=== PATIENT | female | born 1995 | race Two or more races ===

== ENCOUNTER 2025-04-28 17:23 | Observation (INO) | payer MEDICAID, SELFPAY ==
[2025-04-28] VITALS (7 sets, daily range): BP systolic 124; BP diastolic 66; PULSE 87–95; RESP 14–98; TEMP 36.8; O2SAT 97–99; BMI 33.5
== END 2025-04-28 18:20 | disposition home or self-care (01) ==
PROVIDERS: Admitting Provider Specialist; Referring Provider Specialist; Visit Provider Specialist
DX: O26.853 Spotting complicating pregnancy, third trimester (principal); Z3A.37 37 weeks gestation of pregnancy
CPT/HCPCS: 59025; 59899

== ENCOUNTER 2025-05-16 08:13 | Inpatient (IN) | payer MEDICAID, SELFPAY ==
[2025-05-16] VITALS (221 sets, daily range): BP systolic 81–145; BP diastolic 50–83; PULSE 55–142; RESP 18–98; TEMP 36.6–38; O2SAT 63–100; BMI 33.7; BMI 33.8
--- NOTE | 2025-05-16 09:18 | PD.LDHP ---
Documentation for date of: 05/16/25 OB Labor/Induct. HPI History of Present Illness : 3 Para: 2 Term pregnancies: 3 pregnancies: 0 Living children: 3 History of Abortions: Spontaneous and Elective: 0 History of sections: No History of : No EMMETT: 05/15/25 Gestational Age (weeks): 40 Gestational Age (days): 1 History of present illness: 29-year-old 3 para 2-0-0-3 intrauterine at 40 weeks and 1 day presents to labor and delivery complaining of contractions and is noted to be in active labor. Denies any leaking or bleeding. Reports normal movement. care complicated by iron deficiency anemia Comments: OB history: 1 previous full-term normal vaginal delivery at 40 weeks and 1 previous twin delivery normal vaginal delivery at 38 weeks Past medical history: Iron deficiency anemia, B12 deficiency , rubella nonimmune Allergies: No known drug allergies Family history: Denies Social history: Denies any alcohol drug use or smoking Review of Systems Review of Systems Narrative Review of Systems: Denies any chest pain palpitations cough fever shortness of breath or lower extremity pain. She denies any headache change vision or right upper quadrant pain. Past Medical History Surgical History SURGICAL: Negative Section Meds Home Medications and Allergies Home Medications ?Medication ?Instructions ?Recorded ?Confirmed ?Type vits no.124-ferrous fum 1 tab PO QDAY 05/09/20 04/28/25 History 27 mg iron-folic acid 800 mcg tablet ( Vitamin) cyanocobalamin (vitamin B-12) 1,000 mcg PO QDAY 04/28/25 04/28/25 History 1,000 mcg tablet ferrous sulfate 325 mg (65 mg 325 mg PO QDAY 04/28/25 04/28/25 History iron) tablet Allergies Allergy/AdvReac Type Severity Reaction Status Date / Time No Known Allergies Allergy Verified 04/28/25 17:45 OB Exam Physical Exam Vital signs: Pulse BP 82 124/77 05/16/25 08:37 05/16/25 08:37 Constitutional Comments: Within normal limits Routine HEENT Exam Comments: Within normal limits Routine Respiratory Exam Comments: Clear to auscultation bilaterally Routine Cardiovascular Exam Comments: Regular rate and rhythm Routine Abdominal Exam Comments: Gravid term size consistent with 7 and half pounds. Detailed Labor and Delivery Exam Comments: See RN notes. Routine Extremities Exam Comments: Nontender Routine Skin Exam Comments: No gross rashes or lesions Routine Neurological Exam Comments: No deficits OB Results Impressions Impression: Intrauterine at 40w1d Early labor Anticipate spontaneous vaginal delivery Informed consent was obtained. The patient made aware of the risk of operative vaginal delivery and delivery and agrees with these modes of delivery if indicated.
[2025-05-16 09:44] LABS: Basophils # (Auto) 0.0 Thou/mm3 (0.0-0.2); Basophils % (Auto) 0 % (0-2.5); Eosinophils # (Auto) 0.0 Thou/mm3 (0.0-0.5); Eosinophils % (Auto) 1 % (0-10); Hematocrit 33.2 % (36.0-46.0); Hemoglobin 11.2 g/dL (12.0-16.0); Immature Granulocytes Auto 0.02 Thou/mm3 (0.00-0.00); Lymphocytes # (Auto) 1.9 Thou/mm3 (1.0-4.8); Lymphocytes % (Auto) 26 % (10-50); Mean Corpuscular HGB Conc 33.7 g/dl (31.0-37.0); Mean Corpuscular Hemoglobin 28.0 pg (25.0-35.0); Mean Corpuscular Volume 83 fL (80-100); Monocytes # (Auto) 0.5 Thou/mm3 (0.0-0.8); Monocytes % (Auto) 6 % (0-12); Neutrophils # (Auto) 5.1 Thou/mm3 (1.8-7.7); Neutrophils % (Auto) 67 % (37-80); Nucleated Red Blood Cell # 0.00 Thou/mm3 (0.00-0.00); Nucleated Red Blood Cell % 0 /100 WBC (0); Platelet Count 257 Thou/mm3 (140-440); RDW Standard Deviation 43.0 fL (36.4-46.3); Red Blood Count 4.00 Miln/mm3 (4.00-5.20); White Blood Count 7.6 Thou/mm3 (3.6-11.0)
[2025-05-16 10:14] LABS: Syphilis Nonreactive (Nonreactive)
[2025-05-16] MEDS: RINGERS LACTATED 1000 ML 1,000 ML 100 ML IV ×3 (11:00→18:08)
[2025-05-16 12:46] LABS: Amphetamine/Metham Scrn,Ur OB Negative (Negative); Benzoylecgonine Screen, Ur OB Negative (Negative); Opiate Screen,Urine OB Negative (Negative); THC Screen,Urine OB Negative (Negative)
--- NOTE | 2025-05-16 19:28 | PD.LDPN ---
Documentation for date of: 05/16/25 OB Labor Progress Note Pain Control Comments: Epidural Pelvic Exam Dilation (cm): 10 Effacement (%): 100 station: +1 Amniotic membrane status: Ruptured Comments: Forebag ruptured. Clear fluid. Contractions Monitor mode: External Contraction frequency: 1-3.5 Contraction pattern: Tetanic Contraction intensity: Strong Status status: Category l CNM Management Details of MD consultation: Amp and Gent for intrapartum fever consistent with chorioamninitis Encourage pushing Anticipate .
[2025-05-16] MEDS: Ampicillin Inj 2,000 MG in SODIUM CHLORIDE 0.9% (POP) 100 ML 100 MG IV (19:46)
[2025-05-16] MEDS: MINERAL OIL 30 ML UDC TOP (20:56)
[2025-05-16] MEDS: OXYTOCIN in NS 20 units 20 UNIT/1,000 ML BAG 125 UNIT IV (20:59)
--- NOTE | 2025-05-16 21:13 | PD.LDDS ---
DS: Providers Provider Date of admission: 05/16/25 08:49 Primary care physician: Physician No Primary/Family Admitting Provider: Tevin Mcnally MD Attending Provider on Admission: Tevin Mcnally MD Attending Provider on DC: Tevin Mcnally MD Discharging Provider: Tevin Mcnally MD DS: Diagnosis Problem List Completed Was Problem List Reviewed/Reconciled?: Yes Summary/Hosp Course Brief History: 29-year-old 3 para 2-0-0-3 intrauterine at 40 weeks and 1 day presents to labor and delivery complaining of contractions and is noted to be in active labor. Denies any leaking or bleeding. Reports normal movement. care complicated by iron deficiency anemia Time Spent with Patient Time attestation: Total time spent providing and/or coordinating discharge services: Exam Vital Signs Temp Pulse Resp BP Pulse Ox O2 Del Method 100.4 F 104 H 18 107/57 L 99 Room Air 05/16/25 19:15 05/16/25 20:49 05/16/25 19:15 05/16/25 20:49 05/16/25 21:09 05/16/25 19:15 Discharge Plan Plan Patient Disposition: HOME (Self Care) Patient condition on transfer: Stable Prescriptions/Referrals Prescriptions/Med Rec: New ibuprofen 600 mg tablet 600 mg PO QID PRN (Reason: pain) Qty: 30 0RF Continued Vitamin 27 mg iron- 800 mcg Tablet 1 tab PO QDAY cyanocobalamin (vitamin B-12) 1,000 mcg tablet 1,000 mcg PO QDAY Patient Comments: TOME 1 TABLETA POR V A ORAL TODOS LOS D ferrous sulfate 325 mg (65 mg iron) tablet 325 mg PO QDAY Patient Comments: TOME 1 TABLETA POR V A ORAL CADA DOS D Referrals: No Primary/Family,Physician [Primary Care Provider] - Patient/Caregiver Discharge Instructions Discharge Activity: activity as tolerated Other Discharge Activity Instructions:: Follow up with Dr Mcnally in 6 weeks. Print Language: Latvian Stand Alone Forms: Beatriz Award Info., Patient Portal Info Letter Planned Discharge Date 05/17/25
[2025-05-16] MEDS: IBUPROFEN TAB 400 MG TABLET 800 MG PO (21:50)
--- NOTE | 2025-05-16 21:51 | OBDSUM_ITS ---
Data (Rodriguez) Data Hx Section: No : 3 Term: 3 : 0 Livin Abortions: Spontaneous & Theraputic: 0 Delivery Data (Rodriguez) Labor Data Initiation of labor: Spontaneous Induction/Augmentation Agent: None ROM date: 05/16/25 ROM time: 13:30 Amniotic membrane rupture type: Spontaneous Amniotic fluid description: Clear Delivery Data EDC: 05/14/25 EDC calculated by:: LMP/early US confirmation Onset of labor date: 05/16/25 Onset of labor time: 14:00 Complete dilation date: 05/16/25 Complete dilation time: 19:26 [place] delivery date: 05/16/25 [place] delivery time: 20:57 Gestational age (weeks): 40 Gestational age (days): 2 Placenta delivery date: 05/16/25 Placenta delivery time: 20:59 Stage 1 total time: Labor - Stage 1 Duration 5 hours and 26 minutes Delivered by: Tevin Mcnally Delivery nurse: IESHA [place] nurse: IESHA Knowles Waiter/Waitress [place] at delivery: No Support person(s) at delivery: FOB AT DELIVERY Delivery Method Delivery method: Normal Vaginal Delivery Presentation: Vertex position: OA Anesthesia Type Anesthesia Type: Epidural Placenta Placenta delivery description: Spontaneous Cord blood sent to lab: Yes cord blood collection: Cord Blood Type Episiotomy Episiotomy description: None EBL Estimated blood loss (ml): 150 Umbilical Cord cord description: 3 Vessels Complications Complications: None Data (Rodriguez) [place] Data order: 1 [place]'s gender: Male Identification band number: [id number] weight (gms): 7 lb 15.163 oz Weight (pounds): 7 lbs and 15.2 ozs length: 19.29 in 1 minute: 7 5 minutes: 9 10 minutes: 9
[2025-05-16] MEDS: GENTAMICIN/NS 80 MG IVPB 80 MG in PRE-MIXED 1 BAG 50 MG IV (22:07)
[2025-05-16] MEDS: LIDOCAINE JELLY 2% (Urojet) 10 ML TUBE TOP (22:37)
[2025-05-16] MEDS: BENZO/LANO/ALOE (Dermoplast) 60 GM CAN 1 SPRAY TOP (23:00)
[2025-05-17] MEDS: Ampicillin Inj 2,000 MG in SODIUM CHLORIDE 0.9% (POP) 100 ML 200 MG IV ×4 (01:48→17:55)
[2025-05-17 04:26] VITALS: BP 110/72; PULSE 83; RESP 18; TEMP 36.4; O2SAT 98
[2025-05-17 06:30] LABS: Basophils # (Auto) 0.0 Thou/mm3 (0.0-0.2); Basophils % (Auto) 0 % (0-2.5); Eosinophils # (Auto) 0.1 Thou/mm3 (0.0-0.5); Eosinophils % (Auto) 1 % (0-10); Hematocrit 27.0 % (36.0-46.0); Hemoglobin 9.2 g/dL (12.0-16.0); Immature Granulocytes Auto 0.07 Thou/mm3 (0.00-0.00); Lymphocytes # (Auto) 1.5 Thou/mm3 (1.0-4.8); Lymphocytes % (Auto) 10 % (10-50); Mean Corpuscular HGB Conc 34.1 g/dl (31.0-37.0); Mean Corpuscular Hemoglobin 28.3 pg (25.0-35.0); Mean Corpuscular Volume 83 fL (80-100); Monocytes # (Auto) 0.9 Thou/mm3 (0.0-0.8); Monocytes % (Auto) 6 % (0-12); Neutrophils # (Auto) 12.3 Thou/mm3 (1.8-7.7); Neutrophils % (Auto) 83 % (37-80); Nucleated Red Blood Cell # 0.00 Thou/mm3 (0.00-0.00); Nucleated Red Blood Cell % 0 /100 WBC (0); Platelet Count 207 Thou/mm3 (140-440); RDW Standard Deviation 42.5 fL (36.4-46.3); Red Blood Count 3.25 Miln/mm3 (4.00-5.20); White Blood Count 14.8 Thou/mm3 (3.6-11.0)
[2025-05-17] MEDS: GENTAMICIN/NS 80 MG IVPB 80 MG in PRE-MIXED 1 BAG 50 MG IV ×2 (06:39→13:51)
[2025-05-17 08:00] VITALS: BP 100/62; PULSE 81; RESP 20; TEMP 36.8; O2SAT 98
--- NOTE | 2025-05-17 10:45 | PD.LDPPPRG ---
Subjective Subjective Interval history: Delivery type: , currently on antibiotics for chorioamnionitis/ endometritis afebrile Patient doing well this morning. No acute complaints. Ambulating, tolerating p.o. and voiding without difficulty. HTN/Pre-Eclampsia screen: No chest pain, shortness of breath, headache, visual changes, epigastric or right upper quadrant pain. Breast-feeding, lochia diminishing. Bowel: Flatus+/ BM+ Exam Vital Signs Temp Pulse Resp BP Pulse Ox O2 Del Method 98.3 F 81 20 100/62 98 Room Air 05/17/25 08:00 05/17/25 08:00 05/17/25 08:00 05/17/25 08:00 05/17/25 08:00 05/17/25 08:00 Constitutional Constitutional: no acute distress Routine HEENT Exam Head: Present normocephalic and atraumatic Eye: Present EOMI and PERRL ENT: Present mucous membranes moist Routine Neck Exam Neck: Present supple and trachea midline Routine Respiratory Exam Respiratory: Present chest non-tender, lungs clear, normal breath sounds and no resp distress Routine Cardiovascular Exam Cardiovascular: Present RRR Routine Abdominal Exam Abdominal: Present soft and normoactive bowel sounds Routine Extremities Exam Extremities: Present full ROM Routine Skin Exam Skin: Present intact, dry and warm Routine Neurological Exam Neurological: Present alert, oriented X3 and CN II-XII intact Routine Psychiatric Exam Psychiatric: Present normal affect and normal thought process Objective Labs 05/17/25 05:23 Labs: Laboratory Results - last 24 hr 05/16/25 05/17/25 09:07 05:23 WBC 14.8 H D RBC 3.25 L Hgb 9.2 L D Hct 27.0 L MCV 83 MCH 28.3 MCHC 34.1 RDW Std Deviation 42.5 Plt Count 207 D Neut % (Auto) 83 H Lymph % (Auto) 10 Robertson % (Auto) 6 Eos % (Auto) 1 Baso % (Auto) 0 Neut # (Auto) 12.3 H Lymph # (Auto) 1.5 Robertson # (Auto) 0.9 H Eos # (Auto) 0.1 Baso # (Auto) 0.0 Immature Gran # (Auto) 0.07 H Absolute Nucleated RBC 0.00 Immature Gran % 1 H Nucleated RBC % 0 Urine Opiates Screen Negative U Amphetamin/Meth Scrn Negative U Cocaine Metab Screen Negative U Marijuana (THC) Screen Negative Assessment & Plan Problem List (1) (normal spontaneous vaginal delivery): Status: Acute Assessment and plan: Continue routine care, patient is anticipated to stay until tomorrow (2) Chorioamnionitis: Status: Acute Assessment and plan: Continue antibiotics for 24 hours Time Spent With Patient Time: Total time spent is greater than 50% in coordination of care (as documented) at patient's floor/unit and/or counseling patient:
[2025-05-17 11:20] VITALS: BP 117/72; PULSE 96; RESP 20; TEMP 36.9; O2SAT 98
[2025-05-17 16:00] VITALS: BP 116/61; PULSE 89; RESP 19; TEMP 36.7; O2SAT 98
[2025-05-17 20:10] VITALS: BP 117/69; PULSE 91; RESP 17; TEMP 37.1; O2SAT 98
[2025-05-18 04:07] VITALS: BP 101/64; PULSE 67; RESP 16; TEMP 36.7; O2SAT 98
[2025-05-18 07:50] VITALS: BP 107/72; PULSE 82; RESP 18; TEMP 36.8; O2SAT 98
--- NOTE | 2025-05-18 10:29 | CHAP ---
Patient was visited by a Spiritual Care Volunteer on 05/17/2025 between 0900 and 1140 and received comfort, encouragement and/or prayer. Patient also received a blessing on infant and family.
--- NOTE | 2025-05-18 12:19 | PD.LDPPPRG ---
Subjective Subjective Interval history: I think she could drop that patient is a 29-year-old -0-0-[address]complicated Dr Mcnally. She is day #2 [address] vaginal delivery[address] Dr Mcnally delivered her 825 around 2100. Patient states she had very small laceration and some stitches she is ready to go home. She has twin girls that are 5 and another child at home and this is her youngest. Patient has no complaints today she is denying heavy bleeding. She has minor cramping. Exam Vital Signs Temp Pulse Resp BP Pulse Ox O2 Del Method 98.2 F 82 18 107/72 98 Room Air 05/18/25 07:50 05/18/25 07:50 05/18/25 07:50 05/18/25 07:50 05/18/25 07:50 05/18/25 07:50 Narrative Exam Patient is alert and oriented x 3 follow simple and no apparent distress fundus is firm extremities showed no significant edema or erythema. Number Objective Labs 05/17/25 05:23 Assessment & Plan Problem List (1) Chorioamnionitis: Problem details: Afebrile x 24 hours Status: Acute (2) care following vaginal delivery: Problem details: Discharge today. instructions given. Follow-up with Dr Mcnally in 6 weeks. Status: Acute Time Spent With Patient Time: Total time spent is greater than 50% in coordination of care (as documented) at patient's floor/unit and/or counseling patient: Time with patient: less than 15 minutes
--- NOTE | 2025-05-18 12:25 | ESDS_ITS ---
DS: Providers Provider Date of admission: 05/16/25 08:49 Primary care physician: Physician No Primary/Family Admitting Provider: Tevin Mcnally MD Attending Provider on Admission: Doyle Chavarria MD Consults: 05/16/25 21:31 Referral Routine Comment: Attending Provider on DC: Jasmin [facility] ([facility]) Discharging Provider: Jasmin [facility] MD ([facility]) Anticipated date of discharge: 05/18/25 DS: Diagnosis Discharge Diagnosis (1) care following vaginal delivery: Status: Acute Assessment & Plan: Standard discharge instructions given. Follow-up with Dr Mcnally in 6 weeks. (2) Chorioamnionitis: Status: Acute Assessment & Plan: Afebrile 24 hours Problem List Completed Was Problem List Reviewed/Reconciled?: Yes Summary/Hosp Course Brief History: 29-year-old 3 para 2-0-0-3 intrauterine at 40 weeks and 1 day presents to labor and delivery complaining of contractions and is noted to be in active labor. Denies any leaking or bleeding. Reports normal movement. care complicated by iron deficiency anemia. The patient was admitted by Dr Mcnally. Please see history and physical for further details. She underwent an uncomplicated vaginal delivery again by Dr Mcnally 825 at 2100. Please see delivery note for further details. She was started on antibiotics for a fever at delivery. She was however afebrile for 24 hours. She was discharged home day #2 in stable condition. Predelivery hemoglobin 11.2. Postdelivery hemoglobin 9.2. Peripartum Data Delivery Method: Normal Vaginal Delivery Episiotomy Description: None Laceration Description: see Delivery Summary complications: other (Patient started on antibiotics for 24 hours for fever at delivery.) Status at Discharge Cognitive/behavioral status at discharge: Patient is alert and oriented x 3 in no apparent distress Functional status at discharge: independent ambulation Overall status at discharge: patient is progressing back to baseline Time Spent with Patient Time attestation: Total time spent providing and/or coordinating discharge services: Time spent: Less than 30 minutes Specific discharge activities: Pelvic rest x 6 weeks. Call for heavy bleeding, fevers or signs of depression. Exam Vital Signs Temp Pulse Resp BP Pulse Ox O2 Del Method 98.2 F 82 18 107/72 98 Room Air 05/18/25 07:50 08/27/25 07:50 05/18/25 07:50 05/18/25 07:50 05/18/25 07:50 05/18/25 07:50 Narrative Exam Patient is alert and oriented x 3. Fundus is firm nontender at umbilicus. Extremities show no significant edema or erythema. Discharge Plan Plan Patient Disposition: HOME (Self Care) Disposition Comment: stable Patient condition on transfer: Stable Prescriptions/Referrals Prescriptions/Med Rec: New ibuprofen 600 mg tablet 600 mg PO QID PRN (Reason: pain) Qty: 30 0RF Continued Vitamin 27 mg iron- 800 mcg Tablet 1 tab PO QDAY cyanocobalamin (vitamin B-12) 1,000 mcg tablet 1,000 mcg PO QDAY Patient Comments: TOME 1 TABLETA POR V A ORAL TODOS LOS D ferrous sulfate 325 mg (65 mg iron) tablet 325 mg PO QDAY Patient Comments: TOME 1 TABLETA POR V A ORAL CADA DOS D Referrals: No Primary/Family,Physician [Primary Care Provider] - Patient/Caregiver Discharge Instructions Discharge Activity: activity as tolerated Other Discharge Activity Instructions:: Follow up with Dr Mcnally in 6 weeks. Other Discharge Diet Instructions: General Education Materials: After a Vaginal , After Delivery Concerns Print Language: Singaporean Activity Restrictions/Additional Instructions: Pelvic rest x 6 weeks Stand Alone Forms: Beatriz Award Info., Patient Portal Info Letter Discharge Order Discharge Orders: Discharge (Routine); Ordered 05/18/25 Ordered By: Jasmin Fisher ([facility]) Planned Discharge Date 05/18/25 (2) Chorioamnionitis Qualifiers: Fetus number: single or unspecified fetus Trimester: third trimester Qualified Code(s): O41.1230 - Chorioamnionitis, third trimester, not applicable or unspecified
--- NOTE | 2025-05-18 16:13 | PC.SS ---
INSPECTOR EYEGLASS FRAMES conducted bedside contact with the patient to address nursing referral indicating patient was late to care.? INSPECTOR EYEGLASS FRAMES introduced self and role.? At bedside with patient was PAT, Cecli Fragoso.? Patient gave permission for FOB to be present during discussion.? Patient confirmed late to care (16 weeks) due to [facility] cancelling initial scheduled appointment due to lack of providers.? [facility] but initial appointment scheduled at week 16.? OB services provided by Dr. Mcnally.? Patient reports consistency with OB services following initial appointment.? , Denis; is the patient?s 4th child.? Other children are ages 6 and 5 years old (twins).? delivered naturally.? Patient plans on combo feeding .? Dr. Anderson will be the infant?s blueprint developer.? Patient is aligned with WIC, SNAP.? Patient is not aligned with TANF.? Patient denies CWS involvement.? Patient denies history of drug/alcohol abuse.? Patient denies episodes of domestic violence.? Patient denies possessing a history of mental health, reports no current possession of depression or anxiety.? Patient has access to appropriate supplies and equipment; to include a car seat.? FOB will provide transportation upon discharge.? Patient describes possessing support system consisting of , FOB, parents and extended family.? INSPECTOR EYEGLASS FRAMES provided the patient with community resources to include Parenting Network and Warm Line.? No further intervention required at this time, social media senior associate will be available to address any further concerns.? INSPECTOR EYEGLASS FRAMES updated bedside nurse.?
== END 2025-05-18 15:10 | disposition home or self-care (01) | DRG 560 ==
LOC: S4SX 21:06 → S4NX 23:06
PROVIDERS: Admitting Provider Specialist; Visit Provider Obstetrics & Gynecology
DX: O48.0 Post-term pregnancy (principal); Z37.0 Single live birth; Z3A.40 40 weeks gestation of pregnancy; O75.2 Pyrexia during labor, not elsewhere classified; O99.02 Anemia complicating childbirth; D50.9 Iron deficiency anemia, unspecified; O41.1230 Chorioamnionitis, third trimester, not applicable or unspecified; O86.12 Endometritis following delivery
CPT/HCPCS: 36415; 80307; 85025; 86780; 86850; 86900; 86901; 86923; 94762; J0290; J1580; J2590; J2795; J7120; A9270